=== PATIENT | male | born 1980 | race Caucasian/White ===

== ENCOUNTER 2018-10-11 13:47 | Observation (INO) ==
[2018-10-11] MEDS ORDERED: Isovue-370 500 ML BOTTLE IVP ONE (14:35)
[2018-10-11 14:37] LABS: Bilirubin,Urine Small (Negative); Blood,Urine Negative (Negative); Clarity,Urine Clear (Clear); Color,Urine Dark Yellow (Yellow); Glucose,Urine (UA) Normal (Normal); Ketones,Urine Negative (Negative); Leukocyte Esterase,Urine Negative (Negative); Nitrite,Urine Negative (Negative); Protein,Urine 30 mg/dL (Neg-Trace); Specific Gravity,Urine >= 1.030 (1.010-1.025); Urobilinogen,Urine Normal (Normal)
[2018-10-11 14:44] LABS: Basophils % 0.5 %; Eosinophils % 0.5 %; Hematocrit 41.1 % (37.5-50.1); Hemoglobin 14.4 g/dL (12.9-16.9); Immature Granulocytes % 0.5 % (0-4); Lymphocytes # 0.2 K/mcL (0.6-4.6); Lymphocytes % 7.8 %; Mean Corpuscular Hemoglobin 30.3 pg (28.0-33.3); Mean Corpuscular Volume 86.5 fL (83.0-100.0); Mean Platelet Volume 9.7 fL (9.4-12.4); Monocytes % 0.5 %; Neutrophils # 1.7 K/mcL (1.6-8.9); Platelet Count 279 K/mcL (140-400); Red Blood Count 4.75 M/mcL (4.19-5.50); Red Cell Distribution Width 11.9 % (11.5-14.5); Segmented Neutrophils % 90.2 %; White Blood Count 1.9 K/mcL (4.3-11.1)
[2018-10-11 14:46] LABS: INR 1.3; Prothrombin Time 14.5 Seconds (9.4-12.1)
[2018-10-11 14:48] LABS: Activated Partial Thrombo Time 34.4 Seconds (26.0-36.0)
[2018-10-11 14:53] LABS: Bacteria,Urine Few per hpf (None-Few); Hyaline Casts,Urine Few per lpf (None-Few); Mucus,Urine Few (Few)
[2018-10-11 14:54] LABS: Alanine Aminotransferase 32 Units/L (7-52); Albumin 3.8 g/dL (3.5-5.7); Albumin/Globulin Ratio 1.1 (1.1-2.2); Alkaline Phosphatase 113 Units/L (34-104); Aspartate Amino Transferase 30 Units/L (13-39); BUN/Creatinine Ratio 6 (6-26); Bilirubin,Direct 0.9 mg/dL (0.0-0.2); Bilirubin,Total 1.9 mg/dL (0.3-1.0); Blood Urea Nitrogen 6 mg/dL (6-20); Calcium 8.6 mg/dL (8.6-10.3); Carbon Dioxide 25 mEq/L (23-29); Chloride 103 mEq/L (98-107); Ethanol < 10 mg/dL (Less than 10); Globulin 3.5 g/dL (2.4-3.5); Glucose 91 mg/dL (70-105); Osmolality,Calculated 287 (280-300); Potassium 2.9 mEq/L (3.5-5.1); Sodium 140 mEq/L (136-145); Total Protein 7.3 g/dL (6.4-8.9); eGFR For African Americans > 60 (> 60); eGFR For Non-African Americans > 60 (> 60)
[2018-10-11 14:57] LABS: Troponin I 0.03 ng/mL (< 0.04)
[2018-10-11 14:58] LABS: Amphetamine Screen,Urine Positive ng/mL (Cutoff=1000); Barbiturate Screen,Urine Negative ng/mL (Cutoff=200); Benzodiazepines Screen,Urine Negative ng/mL (Cutoff=200); Cannabinoid Screen,Urine Negative ng/mL (Cutoff = 50); Cocaine Screen,Urine Negative ng/mL (Cutoff= 300); Opiate Screen,Urine Positive ng/mL (Cutoff=300); Phencyclidine Screen,Urine Negative ng/mL (Cutoff=25)
[2018-10-11 15:01] LABS: VBG HCO3 23 mEq/L (21-27); VBG PCO2 33 mmHg (41-51); VBG PH 7.45 pH Units (7.32-7.42); VBG PO2 61 mmHg (25-50)
[2018-10-11] MEDS ORDERED: Azithromycin 500 MG in 0.9 % Sodium Chloride 250 ML IVPB ONE (15:50)
--- NOTE | 2018-10-11 15:53 | Emergency Department Note ---
Disposition Clinical Impression: Polysubstance abuse Pneumonia Qualifiers: Pneumonia type: due to unspecified organism Laterality: bilateral Lung location: unspecified part of lung Qualified Code(s): J18.9 - Pneumonia, unspecified organism Disposition: Admitted As Inpatient Condition: Fair Referrals: NONE,PCP [Primary Care Provider] - Time of Disposition: 16:01 Altered Mental Status HPI - General Chief Complaint: ED Abdominal Pain Stated Complaint: belly pain, fever Time Seen by Provider: 10/11/18 14:12 Source: patient, EMS Mode of arrival: EMS Limitations: altered mental status Nursing Notes Reviewed: Yes Vital Signs Reviewed: Yes - History of Present Illness HPI Narrative: Patient was brought emergently from by from home by EMS. He complained of abdominal discomfort and chills. He has some alteration of mental status per EMS. In my conversation with the patient he says is been feeling sick for 2 days. He says is been coughing. Some stuff is been coming up and he cannot describe it. Claims some abdominal discomfort which is located in the upper abdomen. He just says it hurts. He cannot give any quantifying her qualifying factors to it. Over he denies vomiting. He does admit to substance abuse. MD complaint: altered mental status, confusion - Related Data Home Medications Medication Instructions Recorded Confirmed Unable To Obtain [Unable to Obtain] 10/11/18 10/11/18 Allergies Allergy/AdvReac Type Severity Reaction Status Date / Time theophylline [From Sebastian-Dur] Allergy See Verified 09/29/18 01:53 Comments Limitations: ROS unobtainable due to patients medical condition Constitutional: Reports: chills Cardiovascular: Reports: chest pain Respiratory: Reports: cough Gastrointestinal: Reports: abdominal pain Neurological: Reports: headache, weakness (Generalized weakness) Past Medical History - Past Medical History Attestation: Yes The following information was validated with the patient. Source: patient, nursing notes reviewed Medical history: Reports: cirrhosis, hypertension, other Surgical history: Reports: non-contributory Psychiatric history: Reports: anxiety, bipolar, depression - Social History Smoking Status: Current every day smoker Smokeless Tobacco Status: No Alcohol use: Reports: occasionally Drug use: Reports: marijuana, methamphetamine Physical Exam - General Limitations: no limitations General appearance: alert, lethargic, other (Mumbles during conversation) - Head Head exam: atraumatic, normocephalic, normal inspection - Eye Eye exam: Present: normal appearance, PERRL, EOMI, nystagmus. Absent: scleral icterus, conjunctival injection - ENT ENT exam: normal exam, normal oropharynx, mucous membranes dry, TM's normal bilaterally, normal external ear exam - Neck Neck exam: Present: normal inspection, full ROM, trachea midline. Absent: meningismus, lymphadenopathy, thyromegaly - Chest Chest inspection: Present: normal inspection, symmetric chest wall rise. Absent: tenderness - Respiratory Respiratory exam: Present: other (Course breath sounds bilaterally). Absent: respiratory distress - Cardiovascular Cardiovascular exam: Present: normal rhythm, tachycardia, normal heart sounds - Abdominal Exam Abdominal exam: Present: soft, tenderness, normal bowel sounds. Absent: Matthews's sign, mass Abdominal tenderness: Present: RUQ, LUQ, epigastrium - Extremities Exam Extremities exam: Present: normal inspection. Absent: pedal edema - Neurological Exam Neurological exam: Present: alert. Absent: motor sensory deficit - Skin Skin exam: Present: warm, dry. Absent: rash Course Course Narrative: Patient arrives with some lethargy and found have a fever. He complains of cough. He has coarse breath sounds on exam. This concerns me for pneumonia. Is also polysubstance abuser by history and that concerns me as well. He admits to substance abuse today. I am initiating a workup on the patient not only for overdose but for infectious pathology. I am going to image his brain. I am going to CT his belly as well because he complains of upper abdominal discomfort and he has some tenderness there although is not focal to right or left upper quadrant. Antipyretics and fluids. Disposition will be based on diagnostic results and reevaluation. - Reevaluation(s) Reevaluation #1: Results come back and show pneumonia on the chest x-ray. The blood work shows a low white count and a low potassium. We will supplement the potassium. No significant problems with LFTs. Drug screen is positive for opiates and amphetamine. CT the abdomen is not showing acute pathology when evaluated in the context of his presentation. I ordered Rocephin and Zithromax. I have already spoken with the hospitalist, Dr. Álvarez who is accepted the patient for admission Time: 15:58 - Consultations Consultation #1: Dr. Álvarez, hospitalist - I discussed the case with the hospitalist. He accepted the patient for admission. Time: 15:55 Vital Signs Temperature 101.2 F H 10/11/18 13:50 Pulse Rate 122 10/11/18 13:50 Respiratory Rate 20 10/11/18 13:50 Blood Pressure 102/48 10/11/18 13:50 O2 Sat by Pulse Oximetry 97 10/11/18 13:50 Temperature 101.2 F H 10/11/18 13:50 Pulse Rate 120 10/11/18 15:28 Respiratory Rate 18 10/11/18 15:28 Blood Pressure 128/84 10/11/18 15:28 O2 Sat by Pulse Oximetry 98 10/11/18 15:28 Oxygen Delivery Oxygen Delivery Room Air Altered Mental Status - Medical Records Medical records reviewed: Yes I reviewed the patient's medical records. - Lab Data Lab results reviewed: Yes I reviewed the patient's lab results. Result diagrams: 10/11/18 14:00 10/11/18 14:00 Lab Results 10/11/18 10/11/18 10/11/18 Range/Units 14:00 14:00 14:00 WBC 1.9 L (4.3-11.1) K/mcL RBC 4.75 (4.19-5.50) M/mcL Hgb 14.4 (12.9-16.9) g/dL Hct 41.1 (37.5-50.1) % MCV 86.5 (83.0-100.0) fL MCH 30.3 (28.0-33.3) pg MCHC 35.0 (31.6-35.5) g/dL RDW 11.9 (11.5-14.5) % Plt Count 279 (140-400) K/mcL MPV 9.7 (9.4-12.4) fL Immature Gran % 0.5 (0-4) % Seg Neutrophils % 90.2 % Lymphocytes % 7.8 % Monocytes % 0.5 % Eosinophils % 0.5 % Basophils % 0.5 % Neutrophils # 1.7 (1.6-8.9) K/mcL Lymphocytes # 0.2 L (0.6-4.6) K/mcL Monocytes # 0.0 (0.0-1.3) K/mcL Eosinophils # 0.0 (0.0-0.6) K/mcL Basophils # 0.0 (0.0-0.2) K/mcL PT 14.5 H (9.4-12.1) Seconds INR 1.3 APTT 34.4 (26.0-36.0) Seconds VBG pH (7.32-7.42) pH Units VBG pCO2 (41-51) mmHg VBG pO2 (25-50) mmHg VBG HCO3 (21-27) mEq/L Sodium 140 (136-145) mEq/L Potassium 2.9 L (3.5-5.1) mEq/L Chloride 103 (98-107) mEq/L Carbon Dioxide 25 (23-29) mEq/L BUN 6 (6-20) mg/dL Creatinine 1.02 (0.70-1.30) mg/dL Est GFR ( Amer) > 60 (> 60) Est GFR (Non-Af Amer) > 60 (> 60) BUN/Creatinine Ratio 6 (6-26) Glucose 91 (70-105) mg/dL Calculated Osmolality 287 (280-300) Lactic Acid (0.5-2.2) mmol/L Calcium 8.6 (8.6-10.3) mg/dL Total Bilirubin 1.9 H (0.3-1.0) mg/dL Direct Bilirubin 0.9 H (0.0-0.2) mg/dL Indirect Bilirubin 1.0 (0.0-1.2) mg/dL AST 30 (13-39) Units/L ALT 32 (7-52) Units/L Alkaline Phosphatase 113 H (34-104) Units/L Troponin I 0.03 (< 0.04) ng/mL Serum Total Protein 7.3 (6.4-8.9) g/dL Albumin 3.8 (3.5-5.7) g/dL Globulin 3.5 (2.4-3.5) g/dL Albumin/Globulin Ratio 1.1 (1.1-2.2) Urine Color (Yellow) Urine Clarity (Clear) Urine pH (5.0-8.0) pH Units Ur Specific [place] (1.010-1.025) Urine Protein (Neg-Trace) mg/dL Urine Glucose (UA) (Normal) mg/dL Urine Ketones (Negative) mg/dL Urine Blood (Negative) Urine Nitrite (Negative) Urine Bilirubin (Negative) Urine Urobilinogen (Normal) mg/dL Ur Leukocyte Esterase (Negative) Urine Bacteria (None-Few) per hpf Hyaline Casts (None-Few) per lpf Urine Mucus (Few) Ur Culture Indicated? (NO) Urine Opiates Screen (Mfncob=084) ng/mL Ur Buprenorphine Scrn (Cutoff=5) ng/mL Ur Oxycodone Screen (Cutoff= 100) ng/mL Ur Barbiturates Screen (Pwckhl=771) ng/mL Ur Phencyclidine Scrn (Cutoff=25) ng/mL Ur Amphetamines Screen (Bcxgip=6426) ng/mL U Benzodiazepines Scrn (Ytbmex=892) ng/mL Urine Cocaine Screen (Cutoff= 300) ng/mL U Marijuana (THC) Screen (Cutoff = 50) ng/mL Ur Drug Screen Interp Ethyl Alcohol < 10 (Less than 10) mg/dL 10/11/18 10/11/18 10/11/18 Range/Units 14:00 14:30 14:30 WBC (4.3-11.1) K/mcL RBC (4.19-5.50) M/mcL Hgb (12.9-16.9) g/dL Hct (37.5-50.1) % MCV (83.0-100.0) fL MCH (28.0-33.3) pg MCHC (31.6-35.5) g/dL RDW (11.5-14.5) % Plt Count (140-400) K/mcL MPV (9.4-12.4) fL Immature Gran % (0-4) % Seg Neutrophils % % Lymphocytes % % Monocytes % % Eosinophils % % Basophils % % Neutrophils # (1.6-8.9) K/mcL Lymphocytes # (0.6-4.6) K/mcL Monocytes # (0.0-1.3) K/mcL Eosinophils # (0.0-0.6) K/mcL Basophils # (0.0-0.2) K/mcL PT (9.4-12.1) Seconds INR APTT (26.0-36.0) Seconds VBG pH (7.32-7.42) pH Units VBG pCO2 (41-51) mmHg VBG pO2 (25-50) mmHg VBG HCO3 (21-27) mEq/L Sodium (136-145) mEq/L Potassium (3.5-5.1) mEq/L Chloride (98-107) mEq/L Carbon Dioxide (23-29) mEq/L BUN (6-20) mg/dL Creatinine (0.70-1.30) mg/dL Est GFR ( Amer) (> 60) Est GFR (Non-Af Amer) (> 60) BUN/Creatinine Ratio (6-26) Glucose (70-105) mg/dL Calculated Osmolality (280-300) Lactic Acid 2.6 H (0.5-2.2) mmol/L Calcium (8.6-10.3) mg/dL Total Bilirubin (0.3-1.0) mg/dL Direct Bilirubin (0.0-0.2) mg/dL Indirect Bilirubin (0.0-1.2) mg/dL AST (13-39) Units/L ALT (7-52) Units/L Alkaline Phosphatase (34-104) Units/L Troponin I (< 0.04) ng/mL Serum Total Protein (6.4-8.9) g/dL Albumin (3.5-5.7) g/dL Globulin (2.4-3.5) g/dL Albumin/Globulin Ratio (1.1-2.2) Urine Color Dark Yellow (Yellow) Urine Clarity Clear (Clear) Urine pH 6.0 (5.0-8.0) pH Units Ur Specific [place] >= 1.030 H (1.010-1.025) Urine Protein 30 H (Neg-Trace) mg/dL Urine Glucose (UA) Normal (Normal) mg/dL Urine Ketones Negative (Negative) mg/dL Urine Blood Negative (Negative) Urine Nitrite Negative (Negative) Urine Bilirubin Small H (Negative) Urine Urobilinogen Normal (Normal) mg/dL Ur Leukocyte Esterase Negative (Negative) Urine Bacteria Few (None-Few) per hpf Hyaline Casts Few (None-Few) per lpf Urine Mucus Few (Few) Ur Culture Indicated? YES A (NO) Urine Opiates Screen Positive H (Lfjvbt=799) ng/mL Ur Buprenorphine Scrn Positive H (Cutoff=5) ng/mL Ur Oxycodone Screen Negative (Cutoff= 100) ng/mL Ur Barbiturates Screen Negative (Evetyl=173) ng/mL Ur Phencyclidine Scrn Negative (Cutoff=25) ng/mL Ur Amphetamines Screen Positive H (Sjmpec=3397) ng/mL U Benzodiazepines Scrn Negative (Wyhfyb=592) ng/mL Urine Cocaine Screen Negative (Cutoff= 300) ng/mL U Marijuana (THC) Screen Negative (Cutoff = 50) ng/mL Ur Drug Screen Interp See Below Ethyl Alcohol (Less than 10) mg/dL 10/11/18 Range/Units 14:58 WBC (4.3-11.1) K/mcL RBC (4.19-5.50) M/mcL Hgb (12.9-16.9) g/dL Hct (37.5-50.1) % MCV (83.0-100.0) fL MCH (28.0-33.3) pg MCHC (31.6-35.5) g/dL RDW (11.5-14.5) % Plt Count (140-400) K/mcL MPV (9.4-12.4) fL Immature Gran % (0-4) % Seg Neutrophils % % Lymphocytes % % Monocytes % % Eosinophils % % Basophils % % Neutrophils # (1.6-8.9) K/mcL Lymphocytes # (0.6-4.6) K/mcL Monocytes # (0.0-1.3) K/mcL Eosinophils # (0.0-0.6) K/mcL Basophils # (0.0-0.2) K/mcL PT (9.4-12.1) Seconds INR APTT (26.0-36.0) Seconds VBG pH 7.45 H (7.32-7.42) pH Units VBG pCO2 33 L (41-51) mmHg VBG pO2 61 H (25-50) mmHg VBG HCO3 23 (21-27) mEq/L Sodium (136-145) mEq/L Potassium (3.5-5.1) mEq/L Chloride (98-107) mEq/L Carbon Dioxide (23-29) mEq/L BUN (6-20) mg/dL Creatinine (0.70-1.30) mg/dL Est GFR ( Amer) (> 60) Est GFR (Non-Af Amer) (> 60) BUN/Creatinine Ratio (6-26) Glucose (70-105) mg/dL Calculated Osmolality (280-300) Lactic Acid (0.5-2.2) mmol/L Calcium (8.6-10.3) mg/dL Total Bilirubin (0.3-1.0) mg/dL Direct Bilirubin (0.0-0.2) mg/dL Indirect Bilirubin (0.0-1.2) mg/dL AST (13-39) Units/L ALT (7-52) Units/L Alkaline Phosphatase (34-104) Units/L Troponin I (< 0.04) ng/mL Serum Total Protein (6.4-8.9) g/dL Albumin (3.5-5.7) g/dL Globulin (2.4-3.5) g/dL Albumin/Globulin Ratio (1.1-2.2) Urine Color (Yellow) Urine Clarity (Clear) Urine pH (5.0-8.0) pH Units Ur Specific [place] (1.010-1.025) Urine Protein (Neg-Trace) mg/dL Urine Glucose (UA) (Normal) mg/dL Urine Ketones (Negative) mg/dL Urine Blood (Negative) Urine Nitrite (Negative) Urine Bilirubin (Negative) Urine Urobilinogen (Normal) mg/dL Ur Leukocyte Esterase (Negative) Urine Bacteria (None-Few) per hpf Hyaline Casts (None-Few) per lpf Urine Mucus (Few) Ur Culture Indicated? (NO) Urine Opiates Screen (Uqcvgo=061) ng/mL Ur Buprenorphine Scrn (Cutoff=5) ng/mL Ur Oxycodone Screen (Cutoff= 100) ng/mL Ur Barbiturates Screen (Ynplmp=215) ng/mL Ur Phencyclidine Scrn (Cutoff=25) ng/mL Ur Amphetamines Screen (Vozjvq=0565) ng/mL U Benzodiazepines Scrn (Yvxpju=978) ng/mL Urine Cocaine Screen (Cutoff= 300) ng/mL U Marijuana (THC) Screen (Cutoff = 50) ng/mL Ur Drug Screen Interp Ethyl Alcohol (Less than 10) mg/dL - Radiology Data Radiology results reviewed: Yes I reviewed the patient's radiology results. - EKG Data EKG attestation: No I reviewed and interpreted this EKG. EKG results narrative: Twelve-lead EKG performed at 1:52 PM. Ordered, reviewed and interpreted by ED physician shows a sinus tachycardia at a rate of 122. Normal axis. Good hour progression across precordium. No acute ischemic changes. Intervals are within normal limits. TPA Checklist - LKW: 3-4.5 hrs Add. Warnings/Precautions Patient/family understanding: The patient/family members have been counseled and understood the risk, benefit, and alternatives of treatment.
[2018-10-11] MEDS ORDERED: *HR* OxyCODONE Immed Rel 5 MG TABLET PO PRN (16:53)
[2018-10-11] MEDS ORDERED: Ondansetron 4 MG/2 ML VIAL IVP PRN (16:53)
[2018-10-11 17:56] LABS: Hepatitis B Surface Antigen Nonreactive (Nonreactive)
[2018-10-11] MEDS ORDERED: Acetaminophen 325 MG TABLET PO SCH (18:00)
[2018-10-11 18:25] LABS: Hepatitis B Core IgM Nonreactive (Nonreactive)
[2018-10-11 18:28] LABS: Hepatitis A Antibody IgM Nonreactive (Nonreactive)
[2018-10-11] MEDS: 0.9 % Sodium Chloride 1,000 ML IVC SCH ×2 (18:41→22:43)
[2018-10-11 21:08] LABS: Hepatitis C Virus Antibody Reactive (Nonreactive)
[2018-10-11] MEDS: Naloxone 0.4 MG/ML INJ IVP PRN ×2 (21:54→22:00)
[2018-10-11 23:49] VITALS: BP 93/62
[2018-10-12] MEDS ORDERED: cefTRIAXone 1,000 MG in 0.9 % Sodium Chloride Mini Bag 100 ML IVPB SCH (09:00)
[2018-10-12] MEDS ORDERED: Azithromycin 500 MG in 0.9 % Sodium Chloride 250 ML IVPB SCH (09:00)
[2018-10-12 21:38] LABS: Acinetobacter baumannii by PCR Not Detected (Not Detect); Candida albicans by PCR Not Detected (Not Detect); Candida glabrata by PCR Not Detected (Not Detect); Candida krusei by PCR Not Detected (Not Detect); Candida parapsilosis by PCR Not Detected (Not Detect); Candida tropicalis by PCR Not Detected (Not Detect); Enterobacter cloacae Cmplx PCR Not Detected (Not Detect); Enterococcus by PCR Not Detected (Not Detect); Escherichia coli by PCR Not Detected (Not Detect); Klebsiella oxytoca by PCR Not Detected (Not Detect); Klebsiella pneumoniae by PCR DETECTED (Not Detect); Proteus by PCR Not Detected (Not Detect); Pseudomonas aeruginosa by PCR Not Detected (Not Detect); Serratia marcescens by PCR Not Detected (Not Detect); Staphylococcus aureus by PCR Not Detected (Not Detect); Staphylococcus by PCR Not Detected (Not Detect); Streptococcus agalactiae(B)PCR Not Detected (Not Detect); Streptococcus by PCR Not Detected (Not Detect); Streptococcus pneumoniae PCR Not Detected (Not Detect); Streptococcus pyogenes (A) PCR Not Detected (Not Detect); blaKPC Carbapenem-Resist Gene Not Detected (Not Detect)
--- NOTE | 2018-10-13 12:34 | Internal Med Progress Note ---
Date of Encounter: 10/13/18 Time of Encounter: 12:30 - Subjective Interval history: Patient was admitted through emergency room with polysubstance abuse. He was noted by nursing staff a few hours after arrival to [facility] to have decreased responsiveness. Narcan was given with minimal improvement. I spoke with Dr. Abarca in emergency room who came over and examined the patient. Additional Narcan was given with minimal response. Arrangements were made for patient to be transferred to [facility] for ongoing care needs. - Constitutional Vitals: Temp Pulse Resp BP Pulse Ox 97.5 F L 94 28 93/62 98 10/11/18 22:04 10/11/18 23:49 10/11/18 22:04 10/11/18 23:49 10/11/18 23:14 Internal Medicine: Result - Labs CBC & Chem 7: 10/11/18 14:00 10/11/18 14:00 - ABG Interpretation ABG results: PT/INR, D-dimer PT 14.5 Seconds (9.4-12.1) H 10/11/18 14:00 Consult Discharge Plan - Plan Referrals: NONE,PCP [Primary Care Provider] - 1 week
--- NOTE | 2018-10-14 09:06 | Electrocardiograph Report ---
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
== END 2018-10-11 23:45 | disposition other institution (70) ==
LOC: EMEROOPIK 13:47 → INPPIK 13:47
PROVIDERS: ADMIT Internal Medicine; ATTEND Internal Medicine